=== PATIENT | male | born 1945 | race Caucasian/White ===

== ENCOUNTER 2017-03-28 07:04 | Day surgery (SDC) | payer OTHER ==
[2017-03-26 10:09] VITALS: BP 144/97
[2017-03-26 11:24] LABS: PATH.CAST-FLAG NOT PRESENT; SPERM-FLAG NOT PRESENT; SRC-FLAG NOT PRESENT; XTAL-FLAG NOT PRESENT; YLC-FLAG NOT PRESENT
[2017-03-26 11:34] LABS: BLOOD UREA NITROGEN 12 mg/dL (7-18)
[2017-03-26 11:37] LABS: ASPARTATE AMINO TRANSFERASE 23 U/L (15-37)
[~2017-03-28] VITALS: Ht 182.9 cm; Wt 99.0 kg
[~2017-03-28 07:04] MED LIST: ASCO500T7 PO; BENZ100C4 PO; CALC250T PO; CARV3.122 PO; CETI10TA18 PO; CYAN1TAB29 PO; DABI150C PO; DILT180C PO; FLUO20CA8 PO; GLIP10TA13 PO; INSU100I13 SC; METF500T4 PO; MOME17SP9 NS; MULT-658 PO; PRAZ2CAP2 PO; QUET400T PO; ROSU20TA PO; TRAZ100T15 PO; [UNRECOGNIZED DRUG - CODE] TP
[2017-03-28] MEDS ORDERED: LACTATED RINGERS 1,000 ML IV SCH (07:41)
[2017-03-28 07:57] VITALS: BP 144/97
[2017-03-28] MEDS ORDERED: LIDOCAINE 1%, 2ML SQ PRN (08:00)
[2017-03-28] MEDS ORDERED: MIDAZOLAM 1 MG/ML, 2ML ONE (09:39)
[2017-03-28] MEDS ORDERED: FENTANYL PF 250 MCG/5ML ONE (09:40)
[2017-03-28] MEDS ORDERED: SUCCINYLCHOLINE 20 MG/ML, 10ML ONE (09:41)
[2017-03-28] MEDS ORDERED: ONDANSETRON 2MG/ML, 2ML ONE (09:41)
[2017-03-28] MEDS ORDERED: PHENYLEPHRINE 10 MG/ML ONE (09:41)
[2017-03-28] MEDS ORDERED: EPHEDRINE 50 MG/ML, 1ML ONE (09:41)
[2017-03-28] MEDS ORDERED: ROCURONIUM 10 MG/ML ONE (09:41)
[2017-03-28] MEDS ORDERED: DEXAMETHASONE 4 MG/ML, 1ML ONE (09:41)
[2017-03-28] MEDS ORDERED: PROPOFOL 10 MG/ML, 20ML ONE (09:41)
[2017-03-28] MEDS ORDERED: ALBUTEROL SULFATE 2.5 MG/3 ML NPPB PRN (10:30)
[2017-03-28] MEDS ORDERED: METOPROLOL 1 MG/ML, 5ML IV PRN (10:30)
[2017-03-28] MEDS ORDERED: LABETALOL 5MG/ML, 20ML IV PRN (10:30)
[2017-03-28] MEDS ORDERED: EPHEDRINE 50 MG/ML, 1ML IVPush PRN (10:30)
[2017-03-28] MEDS ORDERED: OXYcodone 5 MG/5 ML ORAL.SOL UDC PO PRN (10:30)
[2017-03-28] MEDS ORDERED: ACETAMINOPHEN 325 MG TABLET PO PRN (10:30)
[2017-03-28] MEDS ORDERED: HYDROmorphone 1 MG/ML, 1ML IV PRN (10:30)
[2017-03-28] MEDS ORDERED: FENTANYL PF 100 MCG/2ML IV PRN (10:30)
[2017-03-28] MEDS ORDERED: ONDANSETRON 2MG/ML, 2ML IVPush PRN (10:30)
[2017-03-28] MEDS ORDERED: METOCLOPRAMIDE 5 MG/ML, 2ML IV PRN (10:30)
== END 2017-03-28 14:52 ==
LOC: OUT 07:04
PROVIDERS: ATTEND Urology
DX: N20.0 Calculus of kidney (principal); E11.9 Type 2 diabetes mellitus without complications; I10 Essential (primary) hypertension; J44.9 Chronic obstructive pulmonary disease, unspecified; I48.91 Unspecified atrial fibrillation
CPT/HCPCS: 36415; 50590; 80053; 81001; 82962; 85025; 85610; 85730; 87086; 93005; J0330; J1100; J2250; J2370; J2405; J2704; J3010